=== PATIENT | female | born 1985 | race Caucasian/White ===

== ENCOUNTER 2017-08-26 20:51 | Emergency (ER) | payer SELFPAY ==
[~2017-08-26 20:51] MED LIST: LIBRIUM25 MG PO; MOTRIN600 MG PO; PERCOCET 5/31 TABLET PO; PRISTIQ50 MG PO; THIAMINE HCL100 MG PO; VALIUM5 MG PO; YAZ 28 TABLET1 EACH PO; ZANTAC150 MG PO
== END 2017-08-26 21:24 | disposition left against medical advice (07) ==
LOC: EME 20:51
DX: T14.8XXA Other injury of unspecified body region, initial encounter (principal); S00.93XA Contusion of unspecified part of head, initial encounter; V49.40XA Driver injured in collision with unspecified motor vehicles in traffic accident, initial encounter; Y92.410 Unspecified street and highway as the place of occurrence of the external cause